=== PATIENT | female | born 1945 | race Caucasian/White ===

== ENCOUNTER → 2017-05-01 13:40 | Outpatient (CLI) | payer MEDICARE, OTHER ==
[~2017-05-01 13:40] MED LIST: AVAPRO300 MG PO; CITRACAL + D E1 EACH PO; CRANBERRY475 MG PO; DITROPAN X10 MG/BOTT PO; FISH OIL 1,2001 CAP PO; MULTIVITAMIN GUMMY PO; NEXIUM40 MG PO; PAXIL20 MG PO; PERCOCET 10/3251 TA1 PO; PROAIR HFA8.5 GM INH; SYNTHROID125 MCG PO; SYNTHROID150 MCG PO; TEGRETOL XR200 M1 PO; VITAMIN B-122500 MCG PO; VITAMIN D50000 UNIT PO; ZANAFLEX4 MG PO; ZOCOR20 MG PO; ZOCOR40 MG PO; ZYRTEC10 MG PO
== END | disposition home or self-care (01) ==
LOC: D.CT 13:40
DX: R10.9 Unspecified abdominal pain (principal)

== ENCOUNTER → 2017-05-10 08:55 | Outpatient (CLI) | payer MEDICARE, OTHER | END | disposition home or self-care (01) | LOC: D.NM 08:55 | DX: K80.20 Calculus of gallbladder without cholecystitis without obstruction (principal) ==

== ENCOUNTER → 2017-10-23 10:21 | Outpatient (CLI) | payer MEDICARE, OTHER | END | disposition home or self-care (01) | LOC: D.US 10-22 14:30 | DX: R22.2 Localized swelling, mass and lump, trunk (principal) ==

== ENCOUNTER → 2017-10-29 15:27 | Outpatient (CLI) | payer MEDICARE, OTHER | END | disposition home or self-care (01) | LOC: D.CT 15:27 | DX: J31.2 Chronic pharyngitis (principal) ==